=== PATIENT | male | born 1940 | race American Indian/Alaskan Native ===

== ENCOUNTER 2018-05-18 09:27 | Emergency (ER) | payer MEDICARE ==
[2018-05-18] MEDS ORDERED: NACL 0.9% 500 ML 500 ML IV ONE (09:52)
--- NOTE | 2018-05-18 10:15 | Emergency Department Report ---
ED Abdominal Pain HPI - General Chief Complaint: Abdominal Pain Stated Complaint: ABD PAIN Time Seen by Provider: 05/18/18 09:45 Source: patient Mode of arrival: Ambulatory Limitations: No Limitations - History of Present Illness Initial Comments: 77-year-old male with a past medical history hypertension, elevated cholesterol, A. fib (not on anticoagulants), CAD with stent, left inguinal hernia surgery, and defibrillator presents to the hospital for findings of abdominal pain and diarrhea since last night. Pain is intermittent in, generalized and rated it is 6/10 in intensity. No aggravating or alleviating factors reported. Patient unable to qualify the pain. She has had 3 episodes of diarrhea since last night that are nonbloody. No reports of fever, nausea, vomiting, or dysuria. PMD: Dr. Perez As per medical record review patient was and March [address] abdomen and pelvis showed cholelithiasis and diverticulosis - Related Data Home Medications Medication Instructions Recorded Confirmed Last Taken Aspirin [Aspirin BABY CHEW TAB] 81 mg PO DAILY 02/11/14 07/21/14 Unknown Lisinopril [Zestril TAB] 40 mg PO DAILY 02/11/14 07/21/14 Unknown Lovastatin [Altoprev] 40 mg PO DAILY 02/11/14 07/21/14 Unknown NIFEdipine [NIFEdipine ER] 60 mg PO DAILY 02/11/14 07/21/14 Unknown Sotalol [Betapace] 120 mg PO Q12H 02/11/14 07/21/14 Unknown Previous Rx's Medication Instructions Recorded Last Taken Type Ondansetron [Zofran Odt] 4 mg PO Q6H #20 tab.rapdis 07/21/14 Unknown Rx Promethazine [Phenergan] 25 mg MD QHS PRN #10 supp.rect 07/21/14 Unknown Rx traMADol [Ultram 50 MG tab] 50 mg PO Q6HR PRN #12 tablet 01/26/15 Unknown Rx Acetaminophen [Tylenol Arthritis] 650 mg PO Q6HR PRN #30 tablet.er 03/28/18 Unknown Rx Amoxicillin [Amoxicillin TAB] 1,000 gm PO TID #14 tablet 03/28/18 Unknown Rx Doxycycline [Vibramycin CAP] 100 mg PO Q12HR #9 capsule 03/28/18 Unknown Rx Ondansetron [Zofran Odt] 4 mg PO Q8HR PRN #20 tab.rapdis 03/28/18 Unknown Rx Loperamide [Imodium] 2 mg PO QID PRN #14 capsule 05/18/18 Unknown Rx Ondansetron [Zofran Odt] 4 mg PO Q8HR PRN #20 tab.rapdis 05/18/18 Unknown Rx traMADol [Ultram 50 MG tab] 50 mg PO Q6HR PRN #20 tablet 05/18/18 Unknown Rx Allergies Allergy/AdvReac Type Severity Reaction Status Date / Time No Known Allergies Allergy Verified 05/18/18 09:32 ED Review of Systems ROS: Stated complaint: ABD PAIN Other details as noted in HPI Comment: All other systems reviewed and negative ED Past Medical Hx - Past Medical History Hx Hypertension: Yes Additional medical history: Afib. Coronary artery disease. high cholesterol. Cholelithiasis. Diverticulosis - Surgical History Hx Coronary Stent: Yes Hx Pacemaker: Yes (Defib) Additional Surgical History: Left inguinal hernia surgery - Social History Smoking Status: Never Smoker Substance Use Type: None - Medications Home Medications: Home Medications Medication Instructions Recorded Confirmed Last Taken Type Aspirin [Aspirin BABY CHEW TAB] 81 mg PO DAILY 02/11/14 07/21/14 Unknown History Lisinopril [Zestril TAB] 40 mg PO DAILY 02/11/14 07/21/14 Unknown History Lovastatin [Altoprev] 40 mg PO DAILY 02/11/14 07/21/14 Unknown History NIFEdipine [NIFEdipine ER] 60 mg PO DAILY 02/11/14 07/21/14 Unknown History Sotalol [Betapace] 120 mg PO Q12H 02/11/14 07/21/14 Unknown History Ondansetron [Zofran Odt] 4 mg PO Q6H #20 tab.rapdis 07/21/14 Unknown Rx Promethazine [Phenergan] 25 mg MD QHS PRN #10 supp.rect 07/21/14 Unknown Rx traMADol [Ultram 50 MG tab] 50 mg PO Q6HR PRN #12 tablet 01/26/15 Unknown Rx Acetaminophen [Tylenol Arthritis] 650 mg PO Q6HR PRN #30 tablet.er 03/28/18 Unknown Rx Amoxicillin [Amoxicillin TAB] 1,000 gm PO TID #14 tablet 03/28/18 Unknown Rx Doxycycline [Vibramycin CAP] 100 mg PO Q12HR #9 capsule 03/28/18 Unknown Rx Ondansetron [Zofran Odt] 4 mg PO Q8HR PRN #20 tab.rapdis 03/28/18 Unknown Rx Loperamide [Imodium] 2 mg PO QID PRN #14 capsule 05/18/18 Unknown Rx Ondansetron [Zofran Odt] 4 mg PO Q8HR PRN #20 tab.rapdis 05/18/18 Unknown Rx traMADol [Ultram 50 MG tab] 50 mg PO Q6HR PRN #20 tablet 05/18/18 Unknown Rx ED Physical Exam - General Limitations: No Limitations - Other Other exam information: General: No limitations, patient is alert in no acute distress Head exam: Atraumatic, normocephalic Eyes exam: Normal appearance, pupils equal reactive to light, extraocular movements intact ENT: Moist mucous membrane Neck exam: Normal inspection, full range of motion, no meningismus nontender Respiratory exam: Clear to auscultation bilateral, no wheezes, rales, crackles Cardiovascular: Normal rate and rhythm, normal heart sounds Abdomen: Soft, nondistended, left upper quadrant tenderness, with normal bowel sounds, no rebound, or guarding Extremity: Full range of motion normal inspection no deformity Back: Normal Inspection, full range of motion, no tenderness Neurologic: Alert, oriented x3, cranial nerves intact, no motor or sensory deficit Psychiatric: normal affect, normal mood Skin: Warm, dry, intact ED Course Vital Signs 05/18/18 05/18/18 05/18/18 09:32 10:27 10:28 Temperature 98.2 F 97.8 F Pulse Rate 60 60 Respiratory 18 16 16 Rate Blood Pressure 165/69 Blood Pressure 163/65 [Left] O2 Sat by Pulse 100 99 99 Oximetry ED Medical Decision Making - Lab Data Result diagrams: 05/18/18 10:11 05/18/18 11:43 Lab Results 05/18/18 05/18/18 05/18/18 Range/Units 10:11 10:11 11:43 WBC 8.1 (4.5-11.0) K/mm3 RBC 4.81 (3.65-5.03) M/mm3 Hgb 16.2 H (11.8-15.2) gm/dl Hct 47.9 H (35.5-45.6) % MCV 100 H (84-94) fl MCH 34 H (28-32) pg MCHC 34 (32-34) % RDW 14.8 (13.2-15.2) % Plt Count 282 (140-440) K/mm3 Lymph % (Auto) 15.0 (13.4-35.0) % [place] % (Auto) 12.3 H (0.0-7.3) % Eos % (Auto) 2.1 (0.0-4.3) % Baso % (Auto) 1.0 (0.0-1.8) % Lymph # 1.2 (1.2-5.4) K/mm3 [place] # 1.0 H (0.0-0.8) K/mm3 Eos # 0.2 (0.0-0.4) K/mm3 Baso # 0.1 (0.0-0.1) K/mm3 Seg Neutrophils % 69.6 (40.0-70.0) % Seg Neutrophils # 5.7 (1.8-7.7) K/mm3 Sodium TNR 140 Potassium TNR 3.8 Chloride TNR 102.2 Carbon Dioxide TNR 24 Anion Gap TNR 18 BUN TNR 6 L Creatinine TNR 0.8 Estimated GFR TNR > 60 BUN/Creatinine Ratio TNR 8 Glucose TNR 71 L Calcium TNR 8.7 Total Bilirubin TNR 0.60 AST TNR 21 ALT TNR 7 Alkaline Phosphatase TNR 81 Total Protein TNR 7.3 Albumin TNR 3.1 L Albumin/Globulin Ratio TNR 0.7 Lipase TNR 15 Urine Color (Yellow) Urine Turbidity (Clear) Urine pH (5.0-7.0) Ur Specific [place] (1.003-1.030) Urine Protein (Negative) mg/dL Urine Glucose (UA) (Negative) mg/dL Urine Ketones (Negative) mg/dL Urine Blood (Negative) Urine Nitrite (Negative) Urine Bilirubin (Negative) Urine Urobilinogen (<2.0) mg/dL Ur Leukocyte Esterase (Negative) Urine WBC (Auto) (0.0-6.0) /HPF Urine RBC (Auto) (0.0-6.0) /HPF U Epithel Cells (Auto) (0-13.0) /HPF Urine Mucus /HPF 05/18/18 Range/Units 12:36 WBC (4.5-11.0) K/mm3 RBC (3.65-5.03) M/mm3 Hgb (11.8-15.2) gm/dl Hct (35.5-45.6) % MCV (84-94) fl MCH (28-32) pg MCHC (32-34) % RDW (13.2-15.2) % Plt Count (140-440) K/mm3 Lymph % (Auto) (13.4-35.0) % [place] % (Auto) (0.0-7.3) % Eos % (Auto) (0.0-4.3) % Baso % (Auto) (0.0-1.8) % Lymph # (1.2-5.4) K/mm3 [place] # (0.0-0.8) K/mm3 Eos # (0.0-0.4) K/mm3 Baso # (0.0-0.1) K/mm3 Seg Neutrophils % (40.0-70.0) % Seg Neutrophils # (1.8-7.7) K/mm3 Sodium Potassium Chloride Carbon Dioxide Anion Gap BUN Creatinine Estimated GFR BUN/Creatinine Ratio Glucose Calcium Total Bilirubin AST ALT Alkaline Phosphatase Total Protein Albumin Albumin/Globulin Ratio Lipase Urine Color Yellow (Yellow) Urine Turbidity Clear (Clear) Urine pH 5.0 (5.0-7.0) Ur Specific [place] 1.060 H (1.003-1.030) Urine Protein <15 mg/dl (Negative) mg/dL Urine Glucose (UA) Neg (Negative) mg/dL Urine Ketones Tr (Negative) mg/dL Urine Blood Neg (Negative) Urine Nitrite Neg (Negative) Urine Bilirubin Neg (Negative) Urine Urobilinogen < 2.0 (<2.0) mg/dL Ur Leukocyte Esterase Neg (Negative) Urine WBC (Auto) < 1.0 (0.0-6.0) /HPF Urine RBC (Auto) 1.0 (0.0-6.0) /HPF U Epithel Cells (Auto) < 1.0 (0-13.0) /HPF Urine Mucus Few /HPF - Radiology Data Radiology results: report reviewed CT abdomen and pelvis with contrast: Left abdominal pain. Following IV contrast transverse images are obtained from the lower chest to the ischium with coronal and sagittal 2-D reformatted images. The visualized lung bases are clear. Cardiovascular calcifications are noted. The liver and spleen appear generally unremarkable. There is a small calcification in the gallbladder. The CBD is nondilated. The pancreas appears normal. There are to circumscribed anechoic masses in the left kidney the larger measuring approximately 5.5 cm and the smaller 3.3 cm. In addition there are 2 smaller 1.2 cm masses of similar characteristics. The bowel is unopacified however there are some scattered diverticula predominantly in the descending portion. There are mild inflammatory changes in the mesentery and fat surrounding the mid descending colon. There are no fluid accumulations nor is there any free air identified. Imaging of the pelvis demonstrates a significantly enlarged prostate gland. The partially opacified urinary bladder is unremarkable. 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 Impressions: 1. Diverticulosis of the descending colon. No evidence of perforation. 2. Gallbladder calculus; no inflammatory changes noted. 3. Multiple large left renal cysts. 4. 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 - Medical Decision Making pt stable, tolerating po, pain controlled without meds mild dehydration, po fluids enouraged will d/c with meds for sx. ct without acute findings - Differential Diagnosis enteritis, gastroenteritis, diverticulitis, food poisoning Critical Care Time: No Critical care attestation.: If time is entered above; I have spent that time in minutes in the direct care of this critically ill patient, excluding procedure time. ED Disposition Clinical Impression: Abdominal pain, Acute diarrhea, Dehydration Disposition: DC-01 TO HOME OR SELFCARE Is pt being admited?: No Does the pt Need Aspirin: No Condition: Stable Instructions: Acute Diarrhea (ED), Abdominal Pain (ED) Additional Instructions: Take the medication as prescribed. Follow up with your doctor. Return if symptoms worsen as indicated by your discharge instructions. Take a copy of your CAT scan provided to you doctor for follow-up and monitoring. Prescriptions: Loperamide [Imodium] 2 mg PO QID PRN #14 capsule PRN Reason: Diarrhea Ondansetron [Zofran Odt] 4 mg PO Q8HR PRN #20 tab.rapdis PRN Reason: Nausea And Vomiting traMADol [Ultram 50 MG tab] 50 mg PO Q6HR PRN #20 tablet PRN Reason: Pain Referrals: PRIMARY CARE, [Primary Care Provider] - 3-5 Days Time of Disposition: 14:09
[2018-05-18 10:25] LABS: Basophils # (Auto) 0.1 K/mm3 (0.0-0.1); Eosinophils # (Auto) 0.2 K/mm3 (0.0-0.4); Eosinophils % (Auto) 2.1 % (0.0-4.3); Hematocrit 47.9 % (35.5-45.6); Hemoglobin 16.2 gm/dl (11.8-15.2); Lymphocytes # (Auto) 1.2 K/mm3 (1.2-5.4); Mean Corpuscular HGB Conc 34 % (32-34); Mean Corpuscular Volume 100 fl (84-94); Monocytes % (Auto) 12.3 % (0.0-7.3); Platelet Count 282 K/mm3 (140-440); Red Blood Count 4.81 M/mm3 (3.65-5.03); Red Cell Distribution Width 14.8 % (13.2-15.2)
[2018-05-18 11:21] LABS: BUN/Creatinine Ratio TNR; Blood Urea Nitrogen TNR mg/dL (9-20)
[2018-05-18 11:22] LABS: Alanine Aminotransferase TNR units/L (7-56); Albumin TNR g/dL (3.9-5); Calcium TNR mg/dL (8.4-10.2); Hemolysis Index TNR
[2018-05-18 12:34] LABS: Alanine Aminotransferase 7 units/L (7-56); Albumin 3.1 g/dL (3.9-5); BUN/Creatinine Ratio 8; Blood Urea Nitrogen 6 mg/dL (9-20); Calcium 8.7 mg/dL (8.4-10.2); Hemolysis Index 25
--- NOTE | 2018-05-18 12:41 | Cat Scan Report ---
CT abdomen and pelvis with contrast: Left abdominal pain. Following IV contrast transverse images are obtained from the lower chest to the ischium with coronal and sagittal 2-D reformatted images. The visualized lung bases are clear. Cardiovascular calcifications are noted. The liver and spleen appear generally unremarkable. There is a small calcification in the gallbladder. The CBD is nondilated. The pancreas appears normal. There are to circumscribed anechoic masses in the left kidney the larger measuring approximately 5.5 cm and the smaller 3.3 cm. In addition there are 2 smaller 1.2 cm masses of similar characteristics. The bowel is unopacified however there are some scattered diverticula predominantly in the descending portion. There are mild inflammatory changes in the mesentery and fat surrounding the mid descending colon. There are no fluid accumulations nor is there any free air identified. Imaging of the pelvis demonstrates a significantly enlarged prostate gland. The partially opacified urinary bladder is unremarkable. 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 Impressions: 1. Diverticulosis of the descending colon. No evidence of perforation. 2. Gallbladder calculus; no inflammatory changes noted. 3. Multiple large left renal cysts. 4. 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
[2018-05-18 13:09] LABS: Bilirubin,Urine NEG (Negative); Blood,Urine NEG (Negative); Color,Urine Yellow (Yellow); Mucus,Urine FEW /HPF; Protein,Urine <15 mg/dL mg/dL (Negative); Urobilinogen,Urine < 2.0 mg/dL (<2.0); WBC,Urine < 1.0 /HPF (0.0-6.0)
[2018-05-18 14:11] VITALS: BP 154/76
== END 2018-05-18 14:14 | disposition home or self-care (01) ==
LOC: ED 09:27
DX: E86.0 Dehydration (principal); R10.84 Generalized abdominal pain; R19.7 Diarrhea, unspecified; I10 Essential (primary) hypertension; I25.10 Atherosclerotic heart disease of native coronary artery without angina pectoris; E78.00 Pure hypercholesterolemia, unspecified; Z95.0 Presence of cardiac pacemaker; Z95.1 Presence of aortocoronary bypass graft; Z79.82 Long term (current) use of aspirin
CPT/HCPCS: 36415; 74177; 80053; 81001; 83690; 85025; 99284; J7040; Q9967